=== PATIENT | male | born 1965 | race Caucasian/White ===

== ENCOUNTER → 2018-04-24 | Outpatient (CLI) | payer BC ==
[~2018-04-24] MED LIST: IOPAMIDOL 370 MG/ML 200 ML INFUS..BTL INJ ONE; SODIUM CHLORIDE 0.9% 250ML 250 ML ONE; SODIUM CHLORIDE 0.9% 500ML 500 ML ONE; SODIUM CHLORIDE 0.9% 50ML 50 ML ONE
[2018-04-24 10:00] LABS: CREATININE, SERUM 1.42 mg/dL (0.72-1.25)
--- NOTE | 2018-04-24 12:53 | Diagnostic Imaging Report ---
EXAM: CT Abdomen and Pelvis without and with contrast INDICATION: Abdominal Pain COMPARISON: None. TECHNIQUE: Abdomen was scanned scanned utilizing a multidetector helical scanner from the lung base to the mid abdomen before and after administration of IV contrast. Coronal and sagittal reformations were obtained. Liver mass protocol was performed with non-contrast, arterial, portal venous, and delayed images. IV CONTRAST: 100 cc of Isovue 370. ORAL CONTRAST: Water COMPLICATIONS: None RADIATION DOSE: Total DLP: 1899 mGy*cm CTDIvol has been reviewed. It is below the limits set by the Radiation Protocol Committee (RPC). Dose modulation, iterative reconstruction, and/or weight based adjustment of the mA/kV was utilized to reduce the radiation dose to as low as reasonably achievable. FINDINGS: LINES and TUBES: None. LOWER THORAX: Unremarkable HEPATOBILIARY: There is a 2.2 cm exophytic hypodense lesion in the posterior aspect of the left hepatic lobe. There is no arterial enhancement. There is peripheral nodular enhancement on portal venous phase with delayed fill-in. Diffuse fatty infiltration of the liver. No biliary ductal dilation. GALLBLADDER: No radio-opaque stones or sludge. No wall thickening. SPLEEN: No splenomegaly. PANCREAS: No focal masses or ductal dilatation. ADRENALS: No adrenal nodules KIDNEYS/URETERS: Kidneys enhance symmetrically, although only partially visualized on post-contrast images. No evidence of hydronephrosis, solid mass, or stone. GI TRACT: No evidence of wall thickening or distension in the partially visualized bowel. Colonic diverticulosis without CT evidence of diverticulitis. LYMPH NODES: No lymphadenopathy. VESSELS: Replaced right hepatic artery from the SMA. Minimal visualized atherosclerotic changes of the abdominal aorta. PERITONEUM / RETROPERITONEUM: No free air or fluid. Mild non-specific mesenteric fat stranding without lymphadenopathy. BONES AND SOFT TISSUES: Unremarkable. CONCLUSION: Findings consistent with a 2.2 cm left hepatic lobe hemangioma. No CT evidence of suspicious hepatic mass. Diffuse fatty liver. Mild non-specific mesenteric stranding without evidence of lymphadenopathy. Findings may be inflammatory in etiology. Signed by: Dr. Boogie Velasco MD on 04/24/2018 12:49 PM
== END ==
LOC: CT 08:27
PROVIDERS: ATTEND Internal Medicine
DX: K76.89 Other specified diseases of liver (principal); R93.2 Abnormal findings on diagnostic imaging of liver and biliary tract
CPT/HCPCS: 36415; 74170; 82565; 84520; 96360; J7040; J7050; Q9967